=== PATIENT | female | born 1965 | race African-American/Black ===

== ENCOUNTER 2019-11-03 07:57 | Emergency (ER) | payer MEDICAID ==
[~2019-11-03] VITALS: Ht 167.6 cm; Wt 90.7 kg
[2019-11-03 09:00] VITALS: BP 127/81
[2019-11-03] MEDS ORDERED: methylPREDNISolone SOD SUCC 125 MG/2 ML VL IM ONE (09:15)
== END 2019-11-03 09:28 | disposition home or self-care (01) ==
LOC: ER 08:10
DX: J06.9 Acute upper respiratory infection, unspecified (principal)
CPT/HCPCS: 71046; 96372; 99283; J2930